=== PATIENT | male | born 1970 | race Caucasian/White ===

== ENCOUNTER 2018-08-13 01:43 | Inpatient (IN) | payer SELFPAY ==
[~2018-08-13] VITALS: Ht 246.4 cm; Wt 104.5 kg
--- NOTE | 2018-08-13 01:50 | NUR ---
Dr. Benitez at bedside for MSE.
[2018-08-13] MEDS ORDERED: IV NORMAL SALINE 500 ML BAG IV ONE (02:00)
[2018-08-13] MEDS ORDERED: LORAZEPAM 2 MG/1 ML VIAL IV ONE ×2 (02:00→02:45)
[2018-08-13] MEDS ORDERED: THIAMINE HCL 200 MG/2 ML VIAL IV ONE (02:00)
[2018-08-13] MEDS ORDERED: LORAZEPAM 2 MG/1 ML VIAL ONE ×2 (02:05→02:50)
[2018-08-13 02:10] LABS: BASOPHILS % (AUTO) 0.5 % (0.0-2.0); EOSINOPHILS % (AUTO) 0.1 % (0.0-7.0); HEMATOCRIT 43.8 % (36.7-47.1); HEMOGLOBIN 15.6 g/dL (12.5-16.3); LYMPHOCYTES # (AUTO) 2.1 K/uL (20.0-40.0); LYMPHOCYTES % (AUTO) 39.6 % (20.5-51.5); MEAN CORPUSCULAR HGB CONC 36 g/dL (32.5-36.3); MEAN CORPUSCULAR VOLUME 98.4 fL (73.0-96.2); MONOCYTES # (AUTO) 0.4 K/uL (2.0-10.0); MONOCYTES % (AUTO) 6.6 % (0.0-11.0); NEUTROPHILS # (AUTO) 2.9 K/uL (1.8-8.9); NEUTROPHILS % (AUTO) 53.2 % (38.5-71.5); PLATELET COUNT (AUTO) 129 K/uL (152-348); RED BLOOD CELL COUNT(AUTO) 4.45 MIL/uL (4.06-5.63); WHITE BLOOD COUNT (AUTO) 5.4 K/uL (3.6-10.2)
[2018-08-13] MEDS ORDERED: LORAZEPAM 1 MG TABLET (02:14)
[2018-08-13] MEDS ORDERED: LISINOPRIL 20 MG TABLET (02:14)
[2018-08-13 02:16] LABS: CREATININE 1.1 mg/dL (0.6-1.3); POTASSIUM 3.7 mmol/L (3.5-5.1)
[2018-08-13] MEDS ORDERED: THIAMINE HCL 200 MG/2 ML VIAL ONE (02:18)
[2018-08-13 02:22] LABS: BILIRUBIN,DIRECT 0.2 mg/dL (0.0-0.2); BILIRUBIN,TOTAL 0.7 mg/dL (0.2-1.0); TOTAL PROTEIN, SERUM 8.3 g/dL (6.4-8.2)
[2018-08-13] MEDS ORDERED: IV D5 1/2 NS 1000 ML 1,000 ML IV ONE (02:24)
--- NOTE | 2018-08-13 02:40 | NUR ---
Pt's O2 saturation 77% on room air. Placed patient on O2@2L/min via nasal cannula.
[2018-08-13] MEDS ORDERED: ONDANSETRON 4 MG/2 ML VIAL IV ONE (02:45)
[2018-08-13] MEDS ORDERED: ONDANSETRON 4 MG/2 ML VIAL ONE (02:50)
--- NOTE | 2018-08-13 02:51 | NUR ---
Dr. Benitez on panel call with Dr. Heber Recinos.
--- NOTE | 2018-08-13 03:04 | NUR ---
Xray at bedside.
[2018-08-13] MEDS ORDERED: PANTOPRAZOLE SODIUM 40 MG VIAL IV ONE (03:15)
--- NOTE | 2018-08-13 03:20 | NUR ---
Report given to Cathy HERNANDEZ.
[2018-08-13] MEDS ORDERED: PANTOPRAZOLE SODIUM 40 MG VIAL ONE (03:25)
[2018-08-13 03:29] LABS: MAGNESIUM 1.5 mg/dL (1.8-2.4)
[2018-08-13] MEDS ORDERED: ZIPRASIDONE MESYLATE 20 MG VIAL IM PRN (03:30)
[2018-08-13] MEDS ORDERED: IV 1/2 NS + KCL 20 MEQ BAG 1,000 ML IV PRN (03:30)
[2018-08-13] MEDS ORDERED: MAG HYDROX/AL HYDROX/SIMETH 30 ML LIQUID UDC PO PRN (03:30)
--- NOTE | 2018-08-13 04:00 | NUR ---
RECEIVED PT FROM ER VIA UTE. UNDER THE CARE OF DR. ROBERTS DX: ETOH DELIRIUM WITHRAWAL.IV INTACT AND PATENT. PT STABLE WITH NO ACUTE DISTRESS. BELONGING LIST DONE.INTERMEDIATE ASSESSMENT DONE. ADMISSION PROCESS AND CARE PLAN INITIATED.CALL LIGHT WITHIN REACH. SAFETY AND COMFORT PROVIDED.WILL CONTINUE TO MONITOR.
--- NOTE | 2018-08-13 04:14 | NUR ---
Pt. admitted to Telemetry , under care of Dr Buck. Belongs List completed, however pt refused to have clothing checked and upon arriving to floor noted with Cell phone and Money. Endorsed to accepting MARY Morgan to include in belongings list.
[2018-08-13] MEDS: LORAZEPAM 2 MG/1 ML VIAL IV SCH ×6 (04:45→23:11)
[2018-08-13 05:29] VITALS: BP 157/93
[2018-08-13] MEDS: ONDANSETRON 4 MG/2 ML VIAL IV PRN ×3 (05:39→17:00)
[2018-08-13] MEDS: PANTOPRAZOLE SODIUM 40 MG TABLET.DR PO SCH (06:11)
[2018-08-13] MEDS: MORPHINE SULFATE 4 MG/1 ML DISP.SYRIN IV PRN (06:27)
[2018-08-13 06:31] VITALS: BP 149/96
--- NOTE | 2018-08-13 06:55 | NUR ---
PT SHOWS NO SIGNS OF DISTRESS. PT CONFUSED. ASKING FOR HIS ATIVAN EVEN IF I JUST GAVE IT TO HIM. GAVE ZOFRAN FOR NAUSEA AND MORPHINE FOR PAIN. PRESCRIBED MEDICATION GIVEN AND PT TOLERATED IT WELL. PT BP RECENTLY IS 149/96. SAFETY AND COMFORT PROVIDED. ALL NEEDS ARE MET. WILL ENDORSE TO DAYSCTFT NURSE FOR CONTINUITY OF CARE.
[2018-08-13] MEDS: MAGNESIUM SULFATE/D5W 100 ML IV SCH ×3 (07:21→09:35)
--- NOTE | 2018-08-13 08:00 | NUR ---
PATIENT IS AWAKE ALERT AND ORIENTED BUT VERY ANXIOUS AND TREMULOUS BOTH HANDS ARE SHAKING ATIVAN GIVEN ORDERED HE IS ON O2 WITH NO SHORTNESS OF BREATH AT THIS TIME IVF REMAINS IN PROGRESS PATIENT MADE COMFORTABLE AND WILL CONTINUE TO OBSERVE.
[2018-08-13] MEDS: METOPROLOL TARTRATE 50 MG TABLET PO SCH ×2 (08:55→20:45)
[2018-08-13] MEDS: MULTIVITAMINS,THERAPEUTIC TABLET PO SCH (08:56)
[2018-08-13] MEDS: THIAMINE HCL 100 MG TABLET PO SCH (08:56)
[2018-08-13] MEDS: FOLIC ACID 1 MG TABLET PO SCH (08:56)
[2018-08-13] MEDS: ACETAMINOPHEN 325 MG TABLET PO PRN ×3 (10:32→20:45)
[2018-08-13] MEDS: METOCLOPRAMIDE HCL 10 MG/2 ML VIAL IV PRN ×2 (11:27→19:52)
[2018-08-13 11:50] VITALS: BP 155/92
--- NOTE | 2018-08-13 11:54 | NUR ---
CALL RECEIVED FROM THE LAB THE ETANOL LEVEL IS 0.43 DR MISTY SADLER NOTIFIED WITH NO NEW ORDERS AT THIS TIME
--- NOTE | 2018-08-13 12:30 | NUR ---
PATIENT HAS PEROIDS OF ANXIETY MANIFESTED BY TREMORS STATING THAT HE FEELS ANXIOUS STATED HIS DRINKING IS CAUSING HIM LOTS OF PROBLEMS CONTINUE WITH ATIVAN ORDERED ALSO HAD TWO EPISODES OF VOMITING DR MISTY SADLER NOTIFIED WITH NEW ORDERS AND NOTED
[2018-08-13 15:55] VITALS: BP 161/90
[2018-08-13] MEDS: ENALAPRILAT DIHYDRATE 1.25 MG/1 ML VIAL IV PRN (15:59)
[2018-08-13] MEDS: POTASSIUM CHLORIDE 20 MEQ in IV D5 1/2 NS 1000 ML 1,000 ML IV PRN (16:55)
[2018-08-13 20:00] VITALS: BP 169/93
--- NOTE | 2018-08-13 20:00 | NUR ---
Received patient sitting on the bed. Vomiting. Noted tremors and excessive sweating. A/O x 4. Reports being anxious. Wants Ativan. On room air. Patient refuse hospital gown. IVF infusing. Safety initiated. Will closely monitor.
--- NOTE | 2018-08-14 00:02 | NUR ---
C/O headache 07/30 not relieved by Tylenol. Morphine 2 mg. given will continue to monitor.
[2018-08-14] MEDS: MORPHINE SULFATE 4 MG/1 ML DISP.SYRIN IV PRN ×3 (00:05→20:25)
[2018-08-14] MEDS: LORAZEPAM 2 MG/1 ML VIAL IV SCH ×5 (03:17→20:24)
[2018-08-14] MEDS: METOCLOPRAMIDE HCL 10 MG/2 ML VIAL IV PRN ×3 (03:22→20:24)
--- NOTE | 2018-08-14 03:35 | NUR ---
Patient is anxious, agitated and restless evidence by excessive sweating and tremors. Ativan given. Will continue to monitor.
[2018-08-14 04:20] VITALS: BP 166/91
--- NOTE | 2018-08-14 05:00 | NUR ---
Patient slept intermittently t/o shift. Patient was anxious, scheduled Ativan given around the clock. Nausea and vomiting x 3, Reglan given, stated relief. C/o headache, medication given, stated relief. Vitals signs stable. B/P on the high side. Patient skin intact. Good urine output. Ambulatory with assists because of the tremors. Safety and comfort measures maintained t/o shift. All meds given as ordered. All needs met.
[2018-08-14] MEDS: POTASSIUM CHLORIDE 20 MEQ in IV D5 1/2 NS 1000 ML 1,000 ML IV PRN ×2 (05:51→20:24)
[2018-08-14] MEDS: PANTOPRAZOLE SODIUM 40 MG TABLET.DR PO SCH (06:00)
[2018-08-14 06:16] LABS: BASOPHILS # (AUTO) 0.1 K/uL (0.0-8.0); BASOPHILS % (AUTO) 1.2 % (0.0-2.0); EOSINOPHILS % (AUTO) 0.4 % (0.0-7.0); HEMATOCRIT 40.2 % (36.7-47.1); HEMOGLOBIN 14.3 g/dL (12.5-16.3); LYMPHOCYTES % (AUTO) 23.7 % (20.5-51.5); MEAN CORPUSCULAR HEMOGLOBIN 35.3 uug (23.8-33.4); MEAN CORPUSCULAR HGB CONC 36 g/dL (32.5-36.3); MEAN CORPUSCULAR VOLUME 99.2 fL (73.0-96.2); MONOCYTES # (AUTO) 0.4 K/uL (2.0-10.0); MONOCYTES % (AUTO) 9.5 % (0.0-11.0); NEUTROPHILS # (AUTO) 2.9 K/uL (1.8-8.9); NEUTROPHILS % (AUTO) 65.2 % (38.5-71.5); PLATELET COUNT (AUTO) 69 K/uL (152-348); RED BLOOD CELL COUNT(AUTO) 4.06 MIL/uL (4.06-5.63); WHITE BLOOD COUNT (AUTO) 4.4 K/uL (3.6-10.2)
[2018-08-14 06:33] LABS: BILIRUBIN,TOTAL 1.4 mg/dL (0.2-1.0); CREATININE 1.1 mg/dL (0.6-1.3); MAGNESIUM 1.6 mg/dL (1.8-2.4); PHOSPHOROUS 1.9 mg/dL (2.5-4.9); POTASSIUM 3.6 mmol/L (3.5-5.1); TOTAL PROTEIN, SERUM 7.4 g/dL (6.4-8.2)
[2018-08-14 06:41] LABS: EOSINOPHILS % (MANUAL) 1 % (0-8); LYMPHOCYTES % (MANUAL) 25 % (20-40); MONOCYTES % (MANUAL) 9 % (2-10); NEUTROPHILS % (MANUAL) 65 % (42-75)
--- NOTE | 2018-08-14 07:51 | NUR ---
RECEIVED PATIENT IN BED S,P ATIVAN ADMINISTRATION BY THE NOC RN PATIENT IS COMFORTABLE AT THIS TIME REMAIN ON IVF ORDERED WITH NO S/S OF INFILTERATION ON SITE WILL CONTINUE TO OBSERVE AND MONITOR HIS ALCOHOL WITHDRAWAL SYMPTOMS
[2018-08-14] MEDS: MULTIVITAMINS,THERAPEUTIC TABLET PO SCH (08:45)
[2018-08-14] MEDS: FOLIC ACID 1 MG TABLET PO SCH (08:45)
[2018-08-14] MEDS: THIAMINE HCL 100 MG TABLET PO SCH (08:45)
[2018-08-14] MEDS: METOPROLOL TARTRATE 50 MG TABLET PO SCH ×2 (08:46→20:24)
--- NOTE | 2018-08-14 09:57 | NUR ---
UP OUT OF BED WALKING IN THE HALLWAY STATED FEELS SOMEWHAT ANXIOUS BUT FEELING MUCH BETTER WILL CONTINUE TO OBSERVE.
[2018-08-14] MEDS ORDERED: AMLODIPINE 5 MG TABLET PO SCH (10:15)
--- NOTE | 2018-08-14 10:38 | NUR ---
PATIENT SEEN AND EXAMINED BY ANDREA SEE WITH NEW ORDERS AND NOTED.
[2018-08-14 11:20] VITALS: BP 152/95
[2018-08-14] MEDS ORDERED: MAGNESIUM SULFATE/D5W 100 ML IV SCH (11:30)
--- NOTE | 2018-08-14 11:30 | NUR ---
MAG LEVEL IS 1.6 DR BANKS NOTIFIED WITH NEW ORDERS AND NOTED
[2018-08-14] MEDS: CHLORDIAZEPOXIDE HCL 25 MG CAPSULE PO SCH ×2 (11:41→16:35)
[2018-08-14 15:00] VITALS: BP 162/90
[2018-08-14] MEDS ORDERED: NEUTRA PHOS PACKET PO ONE (15:45)
[2018-08-14] MEDS: ACETAMINOPHEN 325 MG TABLET PO PRN ×2 (16:40→23:25)
--- NOTE | 2018-08-14 16:40 | NUR ---
PHOS LEVEL IS 1.9 WITH NEW ORDERS FOR K REPLACEMENTS AND NOTED
[2018-08-14] MEDS: ENALAPRILAT DIHYDRATE 1.25 MG/1 ML VIAL IV PRN (18:01)
[2018-08-14 19:00] VITALS: BP 157/102
[2018-08-14] MEDS ORDERED: ATORVASTATIN 20 MG TABLET PO SCH (21:00)
--- NOTE | 2018-08-15 | NUR ---
Pt still nauseous, but no emesis present. Denies visual or auditory hallucinations at this time. Still has moderate tremors and anxiety. Complaining of constant "headache." Ativan and pain medication given as ordered.
[2018-08-15] MEDS: LORAZEPAM 2 MG/1 ML VIAL IV SCH ×2 (00:01→04:25)
[2018-08-15] MEDS: ONDANSETRON 4 MG/2 ML VIAL IV PRN (00:02)
[2018-08-15] MEDS: MORPHINE SULFATE 4 MG/1 ML DISP.SYRIN IV PRN ×2 (00:34→04:31)
[2018-08-15 04:00] VITALS: BP 171/108
[2018-08-15 05:00] VITALS: BP 150/96
--- NOTE | 2018-08-15 06:22 | NUR ---
Patient showered at 4am. Wanted to DC the IV and refusing to put it on again. Says feels stuck to it and wants freedom. No emesis during shift. Nausea controlled with medications, but still complain of "headache." Patient medicated and was given an ice pack to help relieve the pain. At this patient is up walking the hallways and asking for his wallet and belongings which his had taken home. Pt is also asking when he will be discharged. No agitated this shift, although when asked, patient states he is "very agitated." No aggression towards staff. Patient is compliant with all care, except does not want to reconnect the IV line at this time.
[2018-08-15 06:24] LABS: BASOPHILS % (AUTO) 0.6 % (0.0-2.0); EOSINOPHILS # (AUTO) 0.1 K/uL (0.0-0.7); EOSINOPHILS % (AUTO) 1.9 % (0.0-7.0); HEMATOCRIT 41.9 % (36.7-47.1); HEMOGLOBIN 14.7 g/dL (12.5-16.3); LYMPHOCYTES # (AUTO) 0.8 K/uL (20.0-40.0); LYMPHOCYTES % (AUTO) 14.1 % (20.5-51.5); MEAN CORPUSCULAR HEMOGLOBIN 34.8 uug (23.8-33.4); MEAN CORPUSCULAR HGB CONC 35 g/dL (32.5-36.3); MEAN CORPUSCULAR VOLUME 98.7 fL (73.0-96.2); MONOCYTES # (AUTO) 0.3 K/uL (2.0-10.0); MONOCYTES % (AUTO) 5.1 % (0.0-11.0); NEUTROPHILS # (AUTO) 4.4 K/uL (1.8-8.9); NEUTROPHILS % (AUTO) 78.3 % (38.5-71.5); PLATELET COUNT (AUTO) 50 K/uL (152-348); RED BLOOD CELL COUNT(AUTO) 4.24 MIL/uL (4.06-5.63); WHITE BLOOD COUNT (AUTO) 5.6 K/uL (3.6-10.2)
[2018-08-15] MEDS: PANTOPRAZOLE SODIUM 40 MG TABLET.DR PO SCH (06:28)
[2018-08-15 06:44] LABS: CREATININE 0.9 mg/dL (0.6-1.3); MAGNESIUM 1.7 mg/dL (1.8-2.4); PHOSPHOROUS 3.2 mg/dL (2.5-4.9); POTASSIUM 3.6 mmol/L (3.5-5.1)
--- NOTE | 2018-08-15 07:28 | NUR ---
PATIENT KEEPS STATING HE WANTS TO GO HOME. HE SIGNED THE AMA FORM. REPORT WAS GIVEN TO AM NURSE BRITTNEE WHO IS WITH PATIENT RIGHT NOW.
--- NOTE | 2018-08-15 07:45 | NUR ---
SBAR received from previous shift. Pt. insisted on voluntarily discharging under AMA. AMA formed signed by pt. from previous shift. Pt. A/OX3 with capacity to make decision. Informed pt. of risk x3 involved with AMA including but not limited to rehospitalization and . Pt strongly insist on discharging at this moment, refused to state reason of AMA. All belongings accountable for and given back to pt. Attempted to provide educational material to pt. but refused and stated "I just want to go!" D/C PIV on on RFA. Pt.left unit around 0730. made and charge nurse aware.
[2018-08-15 09:02] LABS: EOSINOPHILS % (MANUAL) 1 % (0-8); LYMPHOCYTES % (MANUAL) 15 % (20-40); MONOCYTES % (MANUAL) 4 % (2-10); NEUTROPHILS % (MANUAL) 80 % (42-75)
[2018-08-15] MEDS ORDERED: THIA100T13 PO (09:08)
[2018-08-15] MEDS ORDERED: AMLO5TAB7 PO (09:08)
[2018-08-15] MEDS ORDERED: METO50TA16 PO (09:08)
[2018-08-15] MEDS ORDERED: CHLO25CA22 PO (09:08)
[2018-08-15] MEDS ORDERED: FOLI1TAB16 PO (09:08)
[2018-08-15] MEDS ORDERED: ATOR20TA PO (09:08)
[2018-08-15] MEDS ORDERED: HYDROCHLOROTHIAZIDE 25 MG TABLET PO SCH (09:15)
[2018-08-15] MEDS ORDERED: IV NS 1000 ML 1,000 ML IV PRN (09:15)
[2018-08-15] MEDS ORDERED: MAGNESIUM OXIDE 400 MG TABLET PO ONE (11:00)
== END 2018-08-15 07:28 | disposition left against medical advice (07) | DRG 894 ==
LOC: ER 01:46 → TELE 03:44 → MED 11:15
PROVIDERS: ADMIT Internal Medicine
DX: F10.231 Alcohol dependence with withdrawal delirium (principal); E87.2 Acidosis; F10.251 Alcohol dependence with alcohol-induced psychotic disorder with hallucinations; F10.229 Alcohol dependence with intoxication, unspecified; Y90.9 Presence of alcohol in blood, level not specified; D69.6 Thrombocytopenia, unspecified; I10 Essential (primary) hypertension; F17.210 Nicotine dependence, cigarettes, uncomplicated; E83.42 Hypomagnesemia; R74.0 Nonspecific elevation of levels of transaminase and lactic acid dehydrogenase [LDH]
CPT/HCPCS: 36415; 70030-TC; 71045; 83690; 83735; 84100; 85025; 93005; A4663; C9113; G0480; J2060; J2270; J2405; J2765; J3411; J3475; J3480; J3490; J7040; J7042